=== PATIENT | male | born 2005 | race Hispanic/Latino ===

== ENCOUNTER 2024-06-26 12:12 | Observation (INO) | payer SELFPAY ==
[2024-06-26 13:46] LABS: #Basophils 0.04 10x3/uL (0.0-0.2); %Basophils 0.3 % (0.0-1.0); %Eosinophils 0.4 % (0.0-10.0); %Lymphocytes 10.5 % (21.0-51.0); %Monocytes 5.1 % (0.0-10.0); %Neutrophils 83.4 % (42.0-75.0); Hemoglobin 17.1 g/dL (14.0-18.0); Mean Corpuscular HGB CONC 34.2 g/dL (32.0-36.0); Mean Corpuscular Hemoglobin 29.3 pg (27.0-31.0); Mean Corpuscular Volume 85.8 fL (78.0-98.0); Mean Platelet Volume 11.6 fL (7.4-10.4); Platelet Count 203 10x3/uL (130-400); Red Blood Cell (RBC) Count 5.83 mill/uL (4.70-6.10)
[2024-06-26 13:58] LABS: PTT 29.9 sec (22.9-36.1); Prothrombin Time 13.4 sec (12.0-14.7)
[2024-06-26 14:05] LABS: ALT (SGPT) 21 U/L (8-55); AST (SGOT) 25 U/L (5-34); Albumin 4.9 g/dL (3.5-5.0); Alkaline Phosphatase 117 U/L (40-110); Anion Gap 11 mmol/L (10-20); BUN (Urea Nitrogen) 10 mg/dL (8.9-20.6); Bilirubin, Total 1.8 mg/dL (0.2-1.2); Calc. Creatinine Clearance 0 mL/min (70-130); Calcium 9.8 mg/dL (7.8-10.44); Carbon Dioxide 25 mmol/L (22-29); Chloride 107 mmol/L (98-107); Estimated GFR 128; Globulin 3.3 g/dL (2.4-3.5); Glucose 101 mg/dL (70-105); Potassium 3.8 mmol/L (3.5-5.1); Protein, Total 8.2 g/dL (6.0-8.3); Sodium 139 mmol/L (136-145)
[2024-06-26] MEDS ORDERED: Ondansetron PF 4 MG/2 ML Vial ONE ×2 (14:08→23:25)
[2024-06-26] MEDS ORDERED: Morphine 4 MG/ML VIAL ONE (14:08)
[2024-06-26] MEDS ORDERED: Boostrix 0.5 ML (Tdap) VIAL (>/=7 yrs of age) ONE (14:09)
[2024-06-26] MEDS ORDERED: CEFAZOLIN 2 GM VIAL ONE (14:09)
[2024-06-26] MEDS ORDERED: Sodium Chloride 0.9% 100 ML ONE (14:09)
[2024-06-26] MEDS: GENTAMICIN SULFATE IVPB SCH (15:47)
[2024-06-26] MEDS: SODIUM CHLORIDE 0.9% IVPB SCH (15:47)
[2024-06-26 16:02] VITALS: BMI 19.5
[2024-06-26] MEDS ORDERED: Acetaminophen 325 MG TAB PO PRN (17:45)
[2024-06-26] MEDS ORDERED: Ondansetron PF 4 MG/2 ML Vial IVP PRN (17:45)
[2024-06-26] MEDS ORDERED: Ondansetron ODT 4 MG TAB SL PRN (17:45)
[2024-06-26] MEDS ORDERED: Bupivacaine PF 0.5% 30 ML VIAL ONE (22:13)
[2024-06-26] MEDS ORDERED: Bacitracin Zinc Ointment 30 gm TUBE ONE (22:13)
[2024-06-26] MEDS ORDERED: Dexamethasone 4 mg/ml Vial ONE (23:25)
[2024-06-26] MEDS ORDERED: PROPOFOL 20 ML ONE (23:25)
[2024-06-26] MEDS ORDERED: fentaNYL PF 100 MCG/2 ML SYRINGE ONE (23:25)
[2024-06-26] MEDS ORDERED: Midazolam HCl 2 mg/2 ml Vial ONE (23:25)
[2024-06-26] MEDS ORDERED: Ketorolac Tromethamine 30 MG (1 mL) VIAL ONE (23:41)
[2024-06-26] MEDS ORDERED: Lidocaine 1% PF 5 ML VIAL ONE (23:41)
[2024-06-27] MEDS ORDERED: Promethazine HCl 25 MG/ML VIAL IM PRN (00:06)
[2024-06-27] MEDS ORDERED: HYDROmorphone 2 MG/ML VIAL SLOW IVP PRN (00:06)
[2024-06-27] MEDS ORDERED: Ondansetron HCl/PF 4 MG/2 ML Vial IVP PRN (00:06)
[2024-06-27] MEDS ORDERED: Morphine 4 MG/ML VIAL SLOW IVP PRN (01:16)
[2024-06-27] MEDS ORDERED: HYDROcodone/Acetaminophen 7.5/325 mg Tablet PO PRN (01:16)
[2024-06-27] MEDS: Ketorolac Tromethamine 30 MG (1 mL) VIAL IVP SCH (06:20)
[2024-06-27] MEDS: Vancomycin 1 GM in Premix 1 BAG IVPB SCH (08:11)
[2024-06-27] MEDS: Gentamicin Sulfate 80 MG in Premix 1 BAG IVPB SCH (14:13)
[2024-06-27 17:48] VITALS: BP 121/63; TEMP 98.5
[2024-06-28] MEDS ORDERED: FLU (Fluarix Triv) TS24-25(6MOS UP)/PF 45 MCG/0.5 ML Syringe IM ONE (09:00)
== END 2024-06-27 17:55 | disposition home or self-care (01) ==
LOC: ERS 12:12 → SURG B 15:45
PROVIDERS: ADMIT Orthopaedic Surgery Hand Surgery; ATTEND Orthopaedic Surgery Hand Surgery
PROC: 0L8 Tendons, Division (ICD-10-PCS; principal; 2024-06-27)
PROC: 0RSV0ZZ Reposition Left Metacarpophalangeal Joint, Open Approach (ICD-10-PCS; 2024-06-27)
DX: S66.320A Laceration of extensor muscle, fascia and tendon of right index finger at wrist and hand level, initial encounter (principal); X58.XXXA Exposure to other specified factors, initial encounter
CPT/HCPCS: 36415; 80053; 85025; 85610; 85730; 86850; 86900; 86901; 90471; 90715; 93005; 96374; 96375; 96376; G0378; J0665; J1100; J1580; J1885; J2250; J2272; J2405; J2704; J3370-JW